=== PATIENT | female | born 1955 | race Caucasian/White ===

== ENCOUNTER 2018-05-24 16:30 | Emergency (ER) | payer OTHER ==
[2018-05-24 16:57] VITALS: BP 208/120
--- NOTE | 2018-05-24 17:00 | UC ---
Skin Complaint HPI - HPI Summary HPI Summary: 63 y/o female presents to the urgent care c/o rash in her left wrist for the past week. 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 Pt states rash itches a lot and she has tried Hydrocortisone topical cream w/o any improvement. When Pt was told her BP was very elevated. Pt became anxious and stated she was aware of it and that she has stopped taking her BP medications since they don't work. She states she is now doing exercise and diet control. She emphasizes she only came to the urgent care to get a Tx for her rash and not her BP. She also states she will f/u w/ her PCP for her HTN. She denies GARDINER, dizziness, visual disturbances, SOB, palpitations, chest pain, abdominal pain, N/V/D. Pt w/ Hx of schizophrenia. Pt denies suicidal or homicidal ideation or hallucinations. 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 Negative: Nausea, Vomiting, Numbness, Diaphoresis, Difficulty Breathing, Fever, Chills, Chest Pain, Hoarseness, Throat Tightening, Abdominal Pain, Lightheadedness, Syncope, Drainage, Bruising, Tenderness, Red Streaks Related History: Possible Reaction to: Environmental Exposure - Allergy/Home Medications Allergies/Adverse Reactions: Allergies Allergy/AdvReac Type Severity Reaction Status Date / Time METAL & ALLOYS Allergy Severe BLISTERS & Uncoded 05/24/18 17:00 HIVES CHEMICAL ALLERGIES Allergy Unknown Unknown Uncoded 05/24/18 17:00 Reaction Details Review of Systems Constitutional: Negative Skin: Rash - left wrist w/ itchiness Eyes: Negative ENT: Negative Respiratory: Negative Cardiovascular: Negative Gastrointestinal: Negative Genitourinary: Negative Motor: Negative Neurovascular: Negative Musculoskeletal: Negative Neurological: Negative Psychological: Negative Is Patient Immunocompromised?: No All Other Systems Reviewed And Are Negative: Yes PMH/Surg Hx/FS Hx/Imm Hx Previously Healthy: Yes Endocrine History: Hypothyroidism Cardiovascular History: Hypertension Psychological History: Schizophrenia - Surgical History Surgical History: Yes Surgery Procedure, Year, and Place: BENIGN CYST REMOVED AND ONLY 1 KIDNEY 1971. C SECTION 1983-LUMPECTOMY RIGHT BREAST-RIGHT AXILLARY NODES REMOVED 2002 - Family History Known Family History: Positive: Hypertension - Social History Occupation: Employed Full-time Lives: With Family Alcohol Use: Rare Substance Use Type: None Smoking Status (MU): Former Smoker - quit 6 years ago Physical Exam - Summary Physical Exam Summary: Vital Signs Reviewed: Yes General: well appearing, well nourished obese female sitting comfortably on examining table in no acute apparent pain distress, Eyes: Positive: Conjunctiva Clear - PERRLA< EOMI, fundi grossly normal ENT: Positive: Normal ENT inspection, Hearing grossly normal, Pharynx normal, TMs normal Neck: Positive: Supple, Nontender, No Lymphadenopathy Respiratory: Positive: Chest non-tender, Lungs clear, Normal breath sounds, No respiratory distress Cardiovascular: Positive: RRR, No Murmur, Pulses Normal, Brisk Capillary Refill Abdomen Description: Positive: Nontender, No Organomegaly, Soft. Negative: CVA Tenderness (R), CVA Tenderness (L) Bowel Sounds: Positive: Present Musculoskeletal: Positive: Strength Intact, ROM Intact, No Edema Neurological: Positive: Alert, Muscle Tone Normal Psychological Exam: Normal Skin: Positive: ventral side of left wrist with an erythematous scaling lesion with a central clearance and raised borders about 4cm x 3cm in size. w/ signs of excoriation, non tender to palpation, no discharge observed Triage Information Reviewed: Yes Vital Signs: Initial Vital Signs Temp 98.8 F 05/24/18 16:40 Pulse 86 05/24/18 16:40 Resp 16 05/24/18 16:40 BP 208/120 05/24/18 16:40 Pulse Ox 99 05/24/18 16:40 Course/Dx - Course Course Of Treatment: 63 y/o female presents to the urgent care c/o rash in her left wrist for the past week. 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 Pt states rash itches a lot and she has tried Hydrocortisone topical cream w/o any improvement. When Pt was told her BP was very elevated. Pt became anxious and stated she was aware of it and that she has stopped taking her BP medications since they don't work. She states she is now doing exercise and diet control. She emphasizes she only came to the urgent care to get a Tx for her rash and not her BP. She also states she will f/u w/ her PCP for her HTN. She denies GARDINER, dizziness, visual disturbances, SOB, palpitations, chest pain, abdominal pain, N/V/D. Pt w/ Hx of schizophrenia. Pt denies suicidal or homicidal ideations or hallucinations. Hx obtained. pt w/ Tinea corporis on left hand on examination. Pt's BP is 208/116. Pt is Hemodynamically stable and when told about my concern about her elevated BP,she becomes very anxious and doesn't want to be educated on uncontrolled HTN and all the risk. I told her the need to go to the ER for further management and she states she has done that in the past and she is D/C home w/ elevated BP. Pt declines going to the ER and states she is feeling fine and she only needs Tx for her rash and itchiness which is making her anxious. BP re-taking manually by Nurse and decrease to 185/115. Pt states she will f/u w/ her PCP.Pt Rx Lamisil topical cream for her rash. Pt strongly advised to f/u w/ her PCP in 1-2 days for further management in her HTN and if she develops severe GARDINER, dizziness, chest pain, to go immediately to the ER for further treatment. Pt verbalizes understanding and agreement w/ D/C instructions and left clinic hemodynamycally stable, calm, ambulating and A&OX3 - Differential Diagnoses - Skin Complaint Differential Diagnoses: Allergic Reaction, Contact Dermatitis, Drug Rash, Local Allergic Reaction, MRSA, Poison [place], Poison [place], Tinea - Diagnoses Provider Diagnoses: 1- Left hand tinea corporis. 2- Uncontolled HTN Discharge - Sign-Out/Discharge Documenting (check all that apply): Patient Departure - d/c home - Discharge Plan Condition: Stable Disposition: HOME Prescriptions: Terbinafine [Lamisil Advanced] 1 % EX BID #1 gel Patient Education Materials: Tinea Corporis (ED), Low-Sodium Diet (ED) Forms: *Work Release Referrals: Jewell Leyva MD [Primary Care Provider] - 1 Day Additional Instructions: 1-Please apply Lamisil topical cream over your rash as directed. 2-Your BP is elevated today. please decrease salt in your diet, monitor BP and if it continues to be elevated please f/u with your PCP 1-2 days for further management 3-Your BP is very elevated If you develop severe GARDINER, dizziness, SOB, chest pain , please go immediately to the ER for further management - Billing Disposition and Condition Condition: STABLE Disposition: Home
== END 2018-05-24 17:55 | disposition home or self-care (01) ==
LOC: UCEAST 16:30
DX: B35.4 Tinea corporis (principal); I10 Essential (primary) hypertension; Z87.891 Personal history of nicotine dependence
CPT/HCPCS: 99212; G0463

== ENCOUNTER 2024-06-17 10:43 | Observation (INO) ==
[2024-06-17 11:59] LABS: ABS Basophils 0.2 10^3/uL (0.0-0.1); ABS Monocytes 1.1 10^3/uL (0.0-0.9); ABS Neutrophils 14.3 10^3/uL (1.5-7.6); Eosinophil % 0.2 %; Hemoglobin 14.5 g/dL (11.5-14.3); Lymphocyte % 11.2 %; Mean Corpuscular Hemoglobin 29.4 pg (27-33); Mean Corpuscular Hgb Conc 33.8 g/dL (31-36); Mean Corpuscular Volume 87.1 fL (80-97); Mean Platelet Volume 7.8 fL (7.5-11.2); Platelet Count 378 10^3/uL (150-450); Red Blood Count 4.94 10^6/uL (3.63-4.92); Red Cell Distribution Width 12.4 % (12-17); White Blood Count 17.6 10^3/uL (3.8-11.8)
[2024-06-17] MEDS: Ondansetron 4 mg VIAL 2 MG/ML 2 ml VIAL IV ONE (12:16)
[2024-06-17] MEDS: Morphine 4 MG/ML VIAL (1 ml) IV ONE (12:16)
[2024-06-17] MEDS: Lactated Ringers 1000 ml BAG 1,000 ML IV ONE ×2 (12:17→16:43)
[2024-06-17 12:24] LABS: High Sens Troponin Baseline 80 pg/mL (<15)
[2024-06-17 12:24] LABS: Activated Partial Thrombo Time 28.8 seconds (26.0-38.0); INR 1.05 (0.85-1.14)
[2024-06-17 12:47] LABS: ALT 15 U/L (7-52); Albumin 4.4 g/dL (3.2-5.2); Albumin/Globulin Ratio 1.5 (1-3); Alkaline Phosphatase 84 U/L (35-149); Anion Gap 10 mmol/L (2-16); Blood Urea Nitrogen 22 mg/dL (6-24); CO2 Carbon Dioxide 27 mmol/L (22-32); CRP High Sensitivity 53.18 mg/L (<2.00); Calcium 10.3 mg/dL (8.6-10.3); Chloride 100 mmol/L (101-111); Creatinine, Serum 1.61 mg/dL (0.51-0.95); Glucose 154 mg/dL (70-100); Lipase < 10 U/L (11.0-82.0); Sodium 137 mmol/L (135-145); Total Bilirubin 0.7 mg/dL (0.2-1.0); Total Protein 7.4 g/dL (6.4-8.9); eGFR CKD-EPI 34.7 (>60)
[2024-06-17] MEDS: Iodixanol (CONTRAST) 320 MG/ML 100 ML SDV IV ONE (13:25)
[2024-06-17 13:29] LABS: Potassium Redraw 3.7 mmol/L (3.5-5.0)
[2024-06-17] MEDS: Ciprofloxacin 400mg IVPREMIX 400 MG/200 ML BAG IVPB ONE (14:28)
[2024-06-17 15:25] LABS: Urine Appearance Clear; Urine Bilirubin Negative (Negative); Urine Blood Negative (Negative); Urine Color Yellow; Urine Glucose Negative (Negative); Urine Ketones Negative (Negative); Urine Nitrite Negative (Negative); Urine Protein 1+ (>=30 mg/dL) (Negative); Urine Specific Gravity >1.050 (1.002-1.030); Urine Urobilinogen Negative (Negative)
[2024-06-17 15:28] LABS: Urine Bacteria 1+ /HPF (Absent); Urine Red Blood Cell 1+(3-5/hpf) /HPF (0-Trace); Urine White Blood Cell Trace(0-5/hpf) /HPF (0-Trace)
[2024-06-17] MEDS ORDERED: Ciprofloxacin 400mg IVPREMIX 400 MG/200 ML BAG IVPB SCH (19:00)
[2024-06-17] MEDS: Lactated Ringers 1000 ml BAG 1,000 ML IV SCH (19:18)
[2024-06-17] MEDS: metroNIDAZOLE IV 500 MG/100ML 500 MG/100 ML BAG IVPB SCH (19:25)
[2024-06-17 20:24] LABS: INR 1.12 (0.85-1.14)
[2024-06-18 06:22] LABS: ABS Basophils 0.1 10^3/uL (0.0-0.1); ABS Eosinophils 0.2 10^3/uL (0.0-0.5); ABS Lymphocytes 2.2 10^3/uL (1.0-4.8); ABS Monocytes 1.2 10^3/uL (0.0-0.9); ABS Neutrophils 11.5 10^3/uL (1.5-7.6); Eosinophil % 1.5 %; Hematocrit 37.5 % (35-45); Hemoglobin 12.4 g/dL (11.5-14.3); Lymphocyte % 14.6 %; Mean Corpuscular Hemoglobin 29.2 pg (27-33); Mean Corpuscular Hgb Conc 33.1 g/dL (31-36); Mean Corpuscular Volume 88.2 fL (80-97); Mean Platelet Volume 8.1 fL (7.5-11.2); Platelet Count 291 10^3/uL (150-450); Red Blood Count 4.25 10^6/uL (3.63-4.92); Red Cell Distribution Width 12.4 % (12-17); White Blood Count 15.2 10^3/uL (3.8-11.8)
[2024-06-18 06:40] LABS: Albumin 3.9 g/dL (3.2-5.2); Albumin/Globulin Ratio 1.7 (1-3); Calcium 9.2 mg/dL (8.6-10.3); Creatinine, Serum 1.53 mg/dL (0.51-0.95); Globulin 2.3 g/dL (2-4); Potassium 3.7 mmol/L (3.5-5.0); Total Bilirubin 0.5 mg/dL (0.2-1.0); Total Protein 6.2 g/dL (6.4-8.9); eGFR CKD-EPI 36.8 (>60)
[2024-06-18] MEDS: Ciprofloxacin 400mg IVPREMIX 400 MG/200 ML BAG IVPB SCH (09:35)
[2024-06-18] MEDS: Neomycin/Polym/Bacit TOP OINT 15 GM TOPICAL SCH (12:50)
[2024-06-18] MEDS: Sulfur Hexaflouride MICROSPHR 25 MG VIAL IV PRN (14:05)
[2024-06-18 16:11] LABS: Hematocrit 38.6 % (35-45); Hemoglobin 12.8 g/dL (11.5-14.3)
[2024-06-18] MEDS: Morphine 2 MG/ML SYRINGE IV PRN (17:18)
[2024-06-18] MEDS: Calcium Carb (TUMS) 500 mg CHEW TAB PO PRN (19:58)
[2024-06-18] MEDS: Benzocaine/Menthol LOZ PO PRN (20:32)
[2024-06-18] MEDS: Ondansetron 4 mg VIAL 2 MG/ML 2 ml VIAL IV PRN (23:12)
[2024-06-19 05:08] LABS: Urine Benzodiazepine Screen None Detected (None Detect); Urine Buprenorphine Screen None Detected (None Detect); Urine Cannabinoids Screen None Detected (None Detect); Urine Fentanyl Screen Presumptive Positive (None Detect); Urine Hydrocodone Screen None Detected (None Detect); Urine Opiates Screen Presumptive Positive (None Detect)
[2024-06-19 07:13] LABS: ABS Eosinophils 0.4 10^3/uL (0.0-0.5); ABS Lymphocytes 1.7 10^3/uL (1.0-4.8); ABS Monocytes 1.1 10^3/uL (0.0-0.9); ABS Neutrophils 9.1 10^3/uL (1.5-7.6); Hematocrit 32.3 % (35-45); Lymphocyte % 13.5 %; Mean Corpuscular Hemoglobin 30.1 pg (27-33); Mean Corpuscular Hgb Conc 33.9 g/dL (31-36); Mean Corpuscular Volume 88.7 fL (80-97); Mean Platelet Volume 7.9 fL (7.5-11.2); Platelet Count 246 10^3/uL (150-450); Red Blood Count 3.65 10^6/uL (3.63-4.92); Red Cell Distribution Width 12.5 % (12-17); White Blood Count 12.3 10^3/uL (3.8-11.8)
[2024-06-19 08:03] LABS: Creatinine, Serum 1.28 mg/dL (0.51-0.95); Magnesium 1.4 mg/dL (1.9-2.7); Potassium 3.6 mmol/L (3.5-5.0); eGFR CKD-EPI 45.6 (>60)
[2024-06-19] MEDS: Magnesium Sulfate 2 gm BAG 2 GM/50 ML BAG IVPB ONE (10:37)
[2024-06-19] MEDS ORDERED: fentaNYL 100 mcg/2 ml 50 MCG/ML VIAL IV PRN (11:34)
[2024-06-19] MEDS ORDERED: Metoclopramide 5 MG/ML VIAL (10 mg) IV PRN (11:34)
[2024-06-19] MEDS ORDERED: Naloxone 0.4 mg VIAL 0.4 mg/ml 1 ml VIAL IV PRN (11:34)
[2024-06-19] MEDS ORDERED: Ondansetron 4 mg VIAL 2 MG/ML 2 ml VIAL IV PRN (11:34)
[2024-06-19] MEDS ORDERED: NS 0.45% 1000 ml BAG 1,000 ML IV SCH (12:00)
[2024-06-19] MEDS ORDERED: Midazolam 5 mg/5 ml VIAL 1 mg/ml 5 ml VIAL (5 mg) ONE (13:38)
[2024-06-19] MEDS ORDERED: Zosyn per Pharmacy NOTE FOLLOW UP SCH (14:00)
[2024-06-19] MEDS ORDERED: Lidocaine 2% PF 5 ML VIAL ONE (14:21)
[2024-06-19] MEDS: Piperacillin/Tazobac 3.375 BAG 3.375 GM/100 ML BAG IV ONE (15:42)
[2024-06-19] MEDS: Acetaminophen IV 1 GM/100ML 1,000 MG/100 ML BAG IV ONE (16:05)
[2024-06-19] MEDS: Buffered Lidocaine 1% SYRIN 1 ml INTRADERM ONE (16:05)
[2024-06-19] MEDS: Ondansetron 4 mg VIAL 2 MG/ML 2 ml VIAL IV ONE (16:06)
[2024-06-19] MEDS: Lactated Ringers 1000 ml BAG 1,000 ML IV SCH (16:27)
[2024-06-19] MEDS: ZOSYN 3.375 GM Q8H per EXTENDED INFUSION IV SCH (20:20)
[2024-06-20 06:39] LABS: ABS Basophils 0.1 10^3/uL (0.0-0.1); ABS Eosinophils 0.6 10^3/uL (0.0-0.5); ABS Lymphocytes 2.1 10^3/uL (1.0-4.8); ABS Monocytes 1.1 10^3/uL (0.0-0.9); ABS Neutrophils 7.5 10^3/uL (1.5-7.6); Hematocrit 33.9 % (35-45); Hemoglobin 11.6 g/dL (11.5-14.3); Lymphocyte % 18.7 %; Mean Corpuscular Hemoglobin 30.2 pg (27-33); Mean Corpuscular Hgb Conc 34.1 g/dL (31-36); Mean Corpuscular Volume 88.6 fL (80-97); Mean Platelet Volume 7.9 fL (7.5-11.2); Platelet Count 268 10^3/uL (150-450); Red Blood Count 3.83 10^6/uL (3.63-4.92); Red Cell Distribution Width 12.3 % (12-17); White Blood Count 11.4 10^3/uL (3.8-11.8)
[2024-06-20 07:12] LABS: Calcium 8.5 mg/dL (8.6-10.3); Creatinine, Serum 1.38 mg/dL (0.51-0.95); Magnesium 1.9 mg/dL (1.9-2.7); eGFR CKD-EPI 41.7 (>60)
[2024-06-20] MEDS: Magnesium Sulfate 2 gm BAG 2 GM/50 ML BAG IVPB ONE (08:19)
[2024-06-20 14:33] VITALS: BP 122/98
[2024-06-21 21:01] LABS: Calprotectin 429 mcg/g
== END 2024-06-20 19:30 | disposition home or self-care (01) ==
LOC: ED 10:43 → EDHOLD 16:58 → INTOOBSV 16:58 → SUATTDRO 16:58 → SSU 22:52
PROVIDERS: ADMIT Internal Medicine Hematology & Oncology; ATTEND Internal Medicine
PROC: O.GIFSC (2024-06-19 14:50)